=== PATIENT | male | born 1995 | race Two or more races ===

== ENCOUNTER 2023-12-12 12:02 | Emergency (ER) | payer MEDICAID, OTHER ==
[~2023-12-12] VITALS: Ht 170.2 cm; Wt 88.0 kg
[2023-12-12 12:45] LABS: Urine WBC None Seen /hpf (0 - 3)
[2023-12-12 13:18] LABS: Urine Bacteria NONE SEEN /hpf (None Seen); Urine Blood Negative /uL (Negative); Urine Clarity Clear (Clear); Urine Color Colorless (Yellow); Urine Protein, UAD Negative (Negative); Urine Specific Gravity 1.003 (1.001-1.035); Urine Urobilinogen Normal (Negative)
[2023-12-12 14:16] VITALS: BP 131/75; PULSE 90; RESP 18; TEMP 98.8; O2SAT 97
== END 2023-12-12 19:08 | disposition home or self-care (01) ==
LOC: ER 12:02
DX: N53.14 Retrograde ejaculation (principal)
CPT/HCPCS: 74176; 81001; 87086